=== PATIENT | male | born 1995 | race Two or more races ===

== ENCOUNTER 2022-04-14 15:03 | Emergency (ER) | payer SELFPAY ==
[~2022-04-14] VITALS: Ht 180.3 cm; Wt 82.0 kg
[2022-04-14 15:41] VITALS: BP 146/94
[2022-04-15] MEDS ORDERED: PRED20TA2 PO (06:09)
[2022-04-15] MEDS ORDERED: ALBUAER3 IN (06:09)
== END 2022-04-14 22:00 | disposition left against medical advice (07) ==
LOC: ER 15:03
DX: R06.02 Shortness of breath (principal); Z53.21 Procedure and treatment not carried out due to patient leaving prior to being seen by health care provider

== ENCOUNTER 2022-04-15 00:36 | Emergency (ER) | payer SELFPAY ==
[~2022-04-15] VITALS: Ht 180.3 cm; Wt 86.3 kg
[2022-04-15 04:13] VITALS: BP 132/96
[2022-04-15] MEDS ORDERED: ALBUTEROL SULF 2.5 MG/0.5ML(0.5%) NEB SOLN NEB ONE (04:30)
[2022-04-15] MEDS ORDERED: IPRATROPIUM BROM 0.5 MG/2.5ML INH SOL NEB ONE (04:30)
[2022-04-15] MEDS ORDERED: ALBUAER3 IN (06:09)
[2022-04-15] MEDS ORDERED: PRED20TA2 PO (06:09)
== END 2022-04-15 06:39 | disposition home or self-care (01) ==
LOC: ER 00:40
DX: R06.02 Shortness of breath (principal)
CPT/HCPCS: 71046; 94640; 99283; J7644

== ENCOUNTER 2025-02-16 07:23 | Outpatient (CLI) | payer BC ==
[~2025-02-16 07:23] MED LIST: ALBUAER3 IN; PRED20TA2 PO
== END 2025-02-16 17:00 | disposition home or self-care (01) ==
LOC: LAB 07:23
PROVIDERS: ATTEND Internal Medicine
DX: E55.9 Vitamin D deficiency, unspecified (principal); R73.03 Prediabetes
CPT/HCPCS: 36415; 82306; 83036